=== PATIENT | male | born 1965 | race Caucasian/White ===

== ENCOUNTER → 2017-03-14 | Outpatient (CLI) | payer BC ==
[~2017-03-14] MED LIST: ALL60 PO; CLX20 PO; METH4PAK4 PO; OXYC-57 PO; [UNRECOGNIZED DRUG - OTHER]
--- NOTE | 2017-03-14 16:08 | DIAGNOSTIC IMAGING REPORT ---
VENOUS DOPP LOWER EXT UNILAT CLINICAL HISTORY: 51 years-old Male presenting with RIGHT LEG PAIN, SWELLING. TECHNIQUE: Real-time grayscale and color and spectral Doppler ultrasound imaging of the veins of the right lower extremity was performed. Compression and augmentation were also utilized. COMPARISON: None. FINDINGS: Right: Common femoral vein: Patent. Femoral vein: Patent. Greater saphenous vein: Patent. Popliteal vein: Patent. Calf veins: Limited visualization. Other: Complex hypoechoic collection in the superior medial right calf measuring 9.4 x 1.0 x 2.8 cm tracking along the fascia, most likely representing a hematoma. No associated hyperemia. Popliteal cyst noted. Adjacent hypoechoic masslike lesion measuring 2.8 x 1.6 x 0.9 cm without demonstrable internal vascularity, indeterminate and possibly a lymph node. IMPRESSION: 1. No evidence of deep venous thrombosis. 2. Suspected right superior medial calf hematoma. 3. Popliteal cyst. 4. Possible prominent lymph node in the popliteal fossa. Follow-up as clinically warranted. Electronically signed by: Praveen Diggs M.D. 03/14/2017 4:06 PM Dictated Date/Time: 03/14/2017 4:04 PM
--- NOTE | 2017-03-15 08:48 | CODING QUERY NO DIAGNOSIS ---
: 1965 TREATMENT RENDERED WITHOUT A DIAGNOSIS To promote full compliance with coding requirements relating to patient care, physician participation is requested in all cases of tax director uncertainty. Please assist us with providing a diagnosis/symptom for the test(s) below: A diagnosis/symptom was not documented on your Order. A valid diagnosis/symptom is required to bill all insurances. Please remember that we are unable to code a diagnosis of rule out, probable, possible, questionable, or suspected. Tests that require a diagnosis: DOS: 03/14/17 * US VENOUS DOPPLER UNILATERAL LOWER EXTREMITY DIAGNOSIS: Provider Signature: Date: Thank you Tiffanie Campbell [facility] Information Management Once completed, please kindly fax back to [phone] For questions please call [phone]
== END | disposition home or self-care (01) ==
LOC: C.ULTR 15:20
PROVIDERS: ATTEND Orthopaedic Surgery
DX: M79.661 Pain in right lower leg (principal); M71.21 Synovial cyst of popliteal space [Baker], right knee

== ENCOUNTER → 2017-03-18 | Outpatient (CLI) | payer BC ==
--- NOTE | 2017-03-18 18:46 | DIAGNOSTIC IMAGING REPORT ---
ULTRASOUND RIGHT LOWER EXTREMITY VENOUS CLINICAL HISTORY: Right calf pain. COMPARISON STUDY: Right lower extremity venous ultrasound dated 03/14/2017. TECHNIQUE: Real-time, grayscale, and color Doppler sonography of the deep veins of the right lower extremity was performed from the inguinal crease to the calf. Compression and augmentation were utilized. FINDINGS: There is no sonographic evidence of deep venous thrombosis identified in the right lower extremity. The common femoral, superficial femoral, and popliteal veins are patent and normally compressible. The greater saphenous vein and the profunda femoris vein at the junction with the common femoral vein are clear. The visualized calf veins are patent. A small popliteal cyst measures 5.0 x 0.6 x 2.6 cm. A complex collection is seen in the medial right calf the indicated site of interest. This measures 14.6 x 1.3 x 2.7 cm. There is an ovoid complex hypoechoic structure in the popliteal fossa which measures 2.6 x 1.2 x 1.6 cm. No internal flow seen on color imaging. This is unchanged from 03/14/2017. IMPRESSION: 1. There is no sonographic evidence of deep venous thrombosis identified in the right lower extremity. 2. Small popliteal cyst. 3. A large complex collection is again seen in the medial right calf indicated site of interest. This is similar in appearance to study performed 4 days previously and the appearance remains typical for a hematoma. Clinical correlation will be required and clinical follow-up to resolution is recommended. 4. An indeterminant 2.6 cm ovoid hypoechoic and nonvascular structure is again seen in the popliteal fossa. Differential considerations include a lymph node, nerve sheath tumor, or possibly a ganglion cyst. Precautionary sonographic follow-up in 6 months time is recommended for reassessment. Electronically signed by: Marvel Couch M.D. 03/18/2017 6:44 PM Dictated Date/Time: 03/18/2017 6:40 PM
== END ==
LOC: C.ULTR 17:22
PROVIDERS: ATTEND Orthopaedic Surgery
DX: M79.661 Pain in right lower leg (principal)

== ENCOUNTER → 2018-01-27 | Outpatient (CLI) | payer OTHER ==
--- NOTE | 2018-01-27 12:54 | DIAGNOSTIC IMAGING REPORT ---
CT SCAN OF THE CERVICAL SPINE CLINICAL HISTORY: Cervical stenosis. COMPARISON STUDY: Radiographs of the cervical spine dated 10/07/2007. TECHNIQUE: CT scan of the cervical spine is performed from the skull base to the upper thoracic spine. Images are reviewed in the axial, sagittal, and coronal planes. IV contrast was not administered for this examination. A dose lowering technique was utilized adhering to the principles of ALARA. CT DOSE: 335.94 mGy.cm FINDINGS: Skeletal structures: The skeletal structures appear osteopenic. There is no evidence of fracture or subluxation involving the cervical spine. Vertebral body height and alignment are maintained. There is straightening of the cervical lordosis with reversal centered at C3-C4. Small anterior osteophytes are seen throughout. The odontoid process and lateral masses are intact. The atlantoaxial articulation is preserved noting productive degenerative change. The spinous processes appear intact. There is moderate multilevel cervical spondylosis. Uncovertebral and facet arthropathy contribute to neural foraminal stenosis at several levels. This is moderate to severe on the right at C4-C5 and C7-T1, and on the left at C3-C4, C5-C6, and C6-C7. Intervertebral discs: There is moderate to advanced disc space narrowing seen from C5-C6 through C7-T1. Moderate disc space narrowing seen at C4-C5. Central canal: Posterior disc osteophyte complexes at C3-C4, C5-C6, C6-C7, and C7-T1 likely contribute to multilevel acquired compromise of the central canal. Soft tissues: The prevertebral and paraspinous soft tissues are within normal limits. Calvarium: The visualized calvarium at the skull base appears intact. Brain parenchyma: Partially visualized brain parenchyma the skull base is within normal limits. Sinuses and mastoids: The visualized paranasal sinuses are clear. The mastoid air cells are well pneumatized. Lung apices: Clear as visualized. IMPRESSION: 1. There is no evidence of fracture or subluxation involving the cervical spine. 2. Spondylotic change as above. Electronically signed by: Marvel Couch M.D. 01/27/2018 12:53 PM Dictated Date/Time: 01/27/2018 12:48 PM
== END | disposition home or self-care (01) ==
LOC: C.CTS 12:29
PROVIDERS: ATTEND Physician Assistant Medical
DX: M48.02 Spinal stenosis, cervical region (principal)